=== PATIENT | male | born 1950 | race Caucasian/White ===

== ENCOUNTER 2020-08-27 07:45 | Day surgery (SDC) | payer OTHER ==
[2020-08-25 10:32] VITALS: BMI 39.2
[2020-08-27] MEDS ORDERED: PROPOFOL 20 ML ONE ×2 (07:53)
[2020-08-27] MEDS ORDERED: LIDOCAINE HCL/PF 2% SDV 5ML VIAL ONE (07:53)
[2020-08-27 14:29] VITALS: PULSE 51; TEMP 97.1
[2020-08-27 14:36] VITALS: BP 120/64
== END 2020-08-27 10:00 | disposition home or self-care (01) ==
LOC: FASU-ENDO 07:45
PROVIDERS: ATTEND Internal Medicine Gastroenterology
PROC: 0DJD8ZZ Inspection of Lower Intestinal Tract, Via Natural or Artificial Opening Endoscopic (ICD-10-PCS; principal; 2020-08-27 09:02)
DX: Z12.11 Encounter for screening for malignant neoplasm of colon (principal); K57.30 Diverticulosis of large intestine without perforation or abscess without bleeding; Z86.010 Personal history of colon polyps